=== PATIENT | male | born 1950 | race Caucasian/White ===

== ENCOUNTER 2018-05-20 19:06 | Observation (INO) ==
[2018-05-21] MEDS ORDERED: Acetaminophen 325 MG Tablet PO PRN (03:14)
[2018-05-21] MEDS ORDERED: Bisacodyl 10 MG Supp RECTAL PRN (03:14)
[2018-05-21] MEDS ORDERED: Heparin Drip 25,000 UNIT/250 ML BAG IV.CONT PRN (03:16)
--- NOTE | 2018-05-21 09:56 | P.HP ---
History of Present Illness Primary Care Physician: UNKNOWN Chief Complaint: Right lower extremity swelling History of Present Illness: This is a pleasant 68-year-old male patient with a known medical history of hypertension who presented to the ER with complaints of right lower extremity swelling 3 months. Patient states that he noticed the swelling began roughly 3 months ago after he twisted his ankle, states that the swelling actually never got better but worsened over the past few months. Over the past week it has significantly gotten worse regarding the swelling and has noticed to extend past his knee. Patient denies any pain associated with the swelling. It should be reported that patient did follow with orthopedic surgeon for his left knee, was given a cortisone injection as well as aspiration of the left knee effusion and at that time he did tell the orthopedic surgeon that his right lower leg was swollen, an x-ray was done showing no acute fracture. A right lower extremity ultrasound shows extensive DVT. He was placed on heparin drip upon presentation. - Diagnosis (1) DVT (deep venous thrombosis) Review of Systems All other systems reviewed negative except as stated in HPI [facility] - History History Provided By: Patient - Medical History Medical History: Medical History (Last Updated 05/20/18 @ 19:38 by Seda Zhao RN) Eye problem Hypertension Liver disorder - Surgical History Surgical History: Surgical History (Last Updated 05/21/18 @ 13:24 by Rain Small) H/O eye surgery - Family History Family History: Family History (Last Updated 05/21/18 @ 13:24 by Rain Small) Father Prostate cancer - Tobacco History Second Hand Smoke Exposure: No Smoking Status: Former smoker - Alcohol History How Often Do You Have a Drink Containing Alcohol: 4 or more times a week - Substance Use History Substance History: No History of Abuse - Immunization History Tetanus Immunization Year if Known: 2016 Medications and Allergies Active Medications: Active Medications Acetaminophen (Tylenol) 650 mg PO Q4H PRN PRN Reason: Temp > 100.4 Al Hydroxide/Mg Hydroxide (Milk Of Magnesia Liq) 30 ml PO Q12H PRN PRN Reason: Mild Constipation Bisacodyl (Dulcolax Supp) 10 mg RECTAL DAILY PRN PRN Reason: SEVERE CONSITIPATION Heparin Sodium/Dextrose (Heparin/D5w 25,000 U/250 Ml) 25,000 unit in 250 mls @ 18 mls/hr IV.CONT TITRATE PRN; Protocol PRN Reason: Per Protocol Last Titration: 05/21/18 05:51 Dose: 1,500 units/hr, 15 mls/hr Lactulose (Lactulose Liq) 30 ml PO DAILY PRN PRN Reason: SEVERE CONSITIPATION Ondansetron HCl (Zofran Inj) 4 mg IV.PUSH Q6H PRN PRN Reason: NAUSEA OR VOMITING Sennosides (Senokot) 17.2 mg PO Q12H PRN PRN Reason: Moderate Constipation Allergies Allergy/AdvReac Type Severity Reaction Status Date / Time No Known Allergies Allergy Unverified 05/20/18 19:31 Home Medications Medication Instructions Recorded Confirmed Type lisinopril 05/20/18 History Exam Vital signs: Vital Signs 05/21/18 02:26 05/21/18 08:00 Temperature 96.6 F L 97.1 F L Pulse Rate 72 68 Respiratory Rate 16 18 Blood Pressure 163/88 H 145/78 H Pulse Oximetry 96 97 Intake & Output 05/20/18 05/21/18 05/21/18 18:59 06:59 18:59 Output Total 200 / 200 Balance -200 / -200 Weight 98 kg Output: Urine 200 / 200 Other: Weight On Admission 98 kg Narrative: GENERAL: Well-developed, well-nourished patient in [facility]. SKIN: Warm and dry. No rash. Right lower extremity swelling, pedal and DP pulses present 2+. HEAD: Normocephalic. Atraumatic. EYES: Pupils equal and round. No scleral icterus. No injection or drainage. ENT: No nasal bleeding or discharge. Mucous membranes pink and moist. NECK: Supple. Trachea midline. CARDIOVASCULAR: Regular rate and rhythm. S1, S2 noted. No murmur appreciated. RESPIRATORY: No accessory muscle use. Clear to auscultation. Breath sounds equal bilaterally. GASTROINTESTINAL: Abdomen soft, non-tender, nondistended. Normoactive bowel sounds x4. MUSCULOSKELETAL: No obvious deformities. Extremities without clubbing, cyanosis , or edema. NEUROLOGICAL: Awake and alert. No obvious cranial nerve deficits. Motor grossly within normal limits. 5/5 muscle strength in bilateral upper and lower extremities. Normal speech. PSYCHIATRIC: Appropriate mood and affect; insight and judgment normal. Results - Labs Labs: Laboratory Results - last 24 hr 05/21/18 05/21/18 05/21/18 05:00 06:00 08:30 APTT 114.0 H* D 123.2 H* 117.4 H* Caprini VTE Risk Assessment Caprini VTE Risk Assessment: Moderate/High Risk (score >= 2) Caprini Risk Assessment Model: Point Value = 1 Point Value = 2 Point Value = 3 Point Value = 5 Age 41-60 Minor surgery BMI > 25 kg/m2 Swollen legs Varicose veins or History of unexplained or recurrent spontaneous Oral contraceptives or hormone replacement Sepsis (< 1 month) Serious lung disease, including pneumonia (< 1 month) Abnormal pulmonary function Acute myocardial infarction Congestive heart failure (< 1 month) History of inflammatory bowel disease Medical patient at bed rest Age 61-74 Arthroscopic surgery Major open surgery (> 45 min) Laparoscopic surgery (> 45 min) Malignancy Confined to bed (> 72 hours) Immobilizing plaster cast Central venous access Age >= 75 History of VTE Family history of VTE Factor V Leiden Prothrombin [id number] Lupus anticoagulant Anticardiolipin antibodies Elevated serum homocysteine Heparin-induced thrombocytopenia Other congenital or acquired thrombophilia Stroke (< 1 month) Elective arthroplasty Hip, pelvis, or leg fracture Acute spinal cord injury (< 1 month) Prophylaxis Regimen: Total Risk Factor Score Risk Level Prophylaxis Regimen 0-1 Low Early ambulation 2 Moderate Order ONE of the following: *Sequential Compression Device (SCD) *Heparin 5000 units SQ BID 3-4 Higher Order ONE of the following medications: *Heparin 5000 units SQ TID *Enoxaparin/Lovenox 40 mg SQ daily (WT < 150 kg, CrCl > 30 mL/min) *Enoxaparin/Lovenox 30 mg SQ daily (WT < 150 kg, CrCl > 10-29 mL/min) *Enoxaparin/Lovenox 30 mg SQ BID (WT < 150 kg, CrCl > 30 mL/min) AND/OR *Sequential Compression Device (SCD) 5 or more Highest Order ONE of the following medications: *Heparin 5000 units SQ TID (Preferred with Epidurals) *Enoxaparin/Lovenox 40 mg SQ daily (WT < 150 kg, CrCl > 30 mL/min) *Enoxaparin/Lovenox 30 mg SQ daily (WT < 150 kg, CrCl > 10-29 mL/min) *Enoxaparin/Lovenox 30 mg SQ BID (WT < 150 kg, CrCl > 30 mL/min) AND *Sequential Compression Device (SCD) Assessment and Plan - Assessment (1) DVT (deep venous thrombosis) Code(s): I82.409 - Acute embolism and thrombosis of unspecified deep veins of unspecified lower extremity Status: Acute Plan: Patient presented with right lower extremity swelling 3 months. Right lower extremity ultrasound was done showing extensive DVT. Was placed on heparin drip in the emergency department. Was placed on Xarelto, educated about use and indication. Patient denies any pain associated with DVT. He does have follow-up with PCP. Otherwise stable. Discharge home. Follow-up PCP Activity as tolerated. Heart healthy diet. Prescriptions per discharge plan. (1) DVT (deep venous thrombosis) Qualifiers: DVT location: lower extremity Affected thrombotic vein of extremity: femoral Chronicity: acute Laterality: right Qualified Code(s): I82.411 - Acute embolism and thrombosis of right femoral vein
[2018-05-21] MEDS ORDERED: Rivaroxaban 15 MG Tablet PO ONE (13:30)
[2018-05-21] MEDS ORDERED: Lisinopril 5 MG Tablet PO ONE (13:30)
== END 2018-05-21 14:30 | disposition home or self-care (01) ==
LOC: PH3 05-21 02:05 → NEDDLT 05-21 02:05
PROVIDERS: ADMIT Hospitalist; ATTEND Hospitalist